=== PATIENT | female | born 1960 | race African-American/Black ===

== ENCOUNTER → 2019-02-26 | Outpatient (CLI) | payer MEDICAID ==
--- NOTE | 2019-02-26 13:22 | RAD ---
EXAM: Lumbar spine, 3 views. HISTORY: Pain. COMPARISON: None. FINDINGS: 3 views of the lumbar spine are obtained. There is a transitional lumbosacral segment, considered a partially lumbarized S1 segment with rudimentary S1-S2 disc for this dictation. The left aspect of this segment articulates with the underlying sacrum in the right aspect of the segment is lumbarized. There is no significant listhesis. The vertebral bodies are normal in height and the disc spaces are preserved. IMPRESSION: 1. No acute osseous finding. 2. Transitional lumbosacral segment, a normal variant. Electronically signed by: Hillary Edge MD (02/26/2019 1:19 PM) [id number]
--- NOTE | 2019-02-27 17:23 | RAD ---
DATE: 02/26/2019 EXAM: DIGITAL SCREEN BILAT W/CAD HISTORY: Routine screening COMPARISON: None. This is the baseline. This study was interpreted with the benefit of Computerized Aided Detection (CAD). Breast Density: SCATTERED The breast parenchyma shows scattered fibroglandular densities. Breast parenchyma level B. FINDINGS: No suspicious calcifications or distortion. Small well-circumscribed masses are present involving the left lower inner aspect. There are 2 adjacent masses with larger of these measuring 0.34 cm diameter. At the left upper outer aspect, there is suggested to be a 0.33 cm diameter mass is are well-circumscribed. Right upper outer breast nodularity which probably represents lymph nodes identified. IMPRESSION: No dominant mass. BI-RADS CATEGORY: 2 BENIGN FINDING(S) RECOMMENDED FOLLOW-UP: 12M 12 MONTH FOLLOW-UP PQRS compliance statement: Patient information was entered into a reminder system with a target due date in one year for the next mammogram. Mammography is a sensitive method for finding small breast cancers, but it does not detect them all and is not a substitute for careful clinical examination. A negative mammogram does not negate a clinically suspicious finding and should not result in delay in biopsying a clinically suspicious abnormality. "Our facility is accredited by the [employer] Mammography Program."
== END | disposition home or self-care (01) ==
LOC: MAMMO 10:04
PROVIDERS: ATTEND Family Medicine
DX: Z12.31 Encounter for screening mammogram for malignant neoplasm of breast (principal); N63.24 Unspecified lump in the left breast, lower inner quadrant; N63.21 Unspecified lump in the left breast, upper outer quadrant; M54.5 Low back pain
CPT/HCPCS: 72100; 77067